=== PATIENT | female | born 1945 | race Caucasian/White ===

== ENCOUNTER 2018-11-02 09:45 | Emergency (ER) | payer MEDICARE ==
[~2018-11-02] VITALS: Ht 172.7 cm; Wt 60.0 kg
[2018-11-02] MEDS ORDERED: LOSARTAN POT50 MG PO (10:06)
[2018-11-02] MEDS ORDERED: PRAVASTATIN SOD40 MG PO (10:06)
[2018-11-02] MEDS ORDERED: ALENDRONATE70 MG PO (10:07)
[2018-11-02 10:17] LABS: URINE BILIRUBIN - DIPSTICK NEGATIVE (NEGATIVE); URINE BLOOD DIPSTICK SMALL (NEGATIVE); URINE COLOR YELLOW; URINE GLUCOSE - DIPSTICK NEGATIVE (NEGATIVE); URINE KETONE NEGATIVE (NEGATIVE); URINE NITRITE - DIPSTICK NEGATIVE (Negative); URINE PH 6.5 (4.5-8.0); URINE PROTEIN - DIPSTICK 30 mg/dL (NEG-TRACE); URINE SPECIFIC GRAVITY <=1.005; URINE UROBILINOGEN - DIPSTICK 0.2 E.U./dL (0.2)
[2018-11-02 10:18] LABS: URINE BACTERIA MODERATE hpf; URINE EPITHELIAL CELLS MANY EPI/hpf (0-FEW); URINE LEUK ESTERASE LARGE (NEGATIVE); URINE WBC 20-50 WBC/hpf (0-5)
[2018-11-02] MEDS ORDERED: CIPROFLOXACN750 MG PO (10:22)
[2018-11-02] MEDS ORDERED: PYRIDIUM200 MG PO (10:22)
[2018-11-02 10:23] VITALS: BP 148/70
== END 2018-11-02 11:00 | disposition home or self-care (01) ==
LOC: ED 09:45
PROVIDERS: Emergency Medicine
DX: N39.0 Urinary tract infection, site not specified (principal); I10 Essential (primary) hypertension; B96.20 Unspecified Escherichia coli [E. coli] as the cause of diseases classified elsewhere

== ENCOUNTER 2019-10-26 | Emergency (ER) | payer MEDICARE ==
[~2019-10-26] MED LIST: ALENDRONATE70 MG PO; CIPROFLOXACN750 MG PO; LOSARTAN POT50 MG PO; PRAVASTATIN SOD40 MG PO; PYRIDIUM200 MG PO
[2019-10-26 11:27] LABS: HEMATOCRIT 38.7 % (37.0-47.0); HEMOGLOBIN 12.6 g/dl (12.0-16.0); IMMATURE GRANULOCYTES 0.6 % (0.0-5.0); MEAN CELL VOLUME 94.9 fL CALC (80.0-100.0); MEAN CORPUSCULAR HGB 30.9 pG CALC (26.0-32.0); MEAN CORPUSCULAR HGB CONC 32.6 g/L CALC (32.0-36.0); NEUT# 2.59 thou/uL (2.00-7.15); RED BLOOD COUNT 4.08 mill/uL (4.20-5.60); RED CELL DISTRI WIDTH 12.1 % (11.5-15.5)
[2019-10-26 11:44] LABS: ALBUMIN 4.6 g/dL (3.2-5.0); ALKALINE PHOSPHATASE 86 u/l (38-126); ANION GAP 13 (6-22 (CALC)); BILIRUBIN, TOTAL 0.6 mg/dL (0.0-1.4); BUN 14 mg/dL (8-23); BUN/CREATININE RATIO 19 (12-20 (CALC)); CARBON DIOXIDE 24 mmol/l (22-30); CHLORIDE 98 mmol/l (95-108); CREATININE 0.7 mg/dL (0.5-1.0); GFR > 60 ML/MIN (>=60 (CALC)); GFR FOR AFR.AMER. > 60 ML/MIN (>=60 (CALC)); POTASSIUM 4.3 mmol/l (3.5-5.1); SGOT/AST 29 u/l (9-36); SODIUM 131 mmol/l (137-146); TOTAL PROTEIN 7.8 g/dL (6.3-8.2)
[2019-10-26 11:56] LABS: MYOGLOBIN 30 ng/mL (0 - 62)
== END 2019-10-26 13:09 | disposition home or self-care (01) ==
PROVIDERS: Emergency Medicine
DX: I10 Essential (primary) hypertension (principal); R94.31 Abnormal electrocardiogram [ECG] [EKG]